=== PATIENT | male | born 1950 | race Caucasian/White ===

== ENCOUNTER 2018-06-11 18:12 | Inpatient (IN) | payer OTHER ==
[~2018-06-11] VITALS: Ht 175.3 cm; Wt 91.0 kg
[2018-06-11 18:22] VITALS: Ht 175.3 cm; Wt 91.0 kg
[2018-06-11 18:56] LABS: BASOPHIL % 0.5 % (0-2); PLATELET COUNT 309 x10^3mcL (130-400)
[2018-06-11 19:01] LABS: CALCIUM 9.2 mg/dL (8.5-10.1); CARBON DIOXIDE 27.7 mmol/L (21-32); CREATININE SERUM 1.4 mg/dL (0.7-1.3); POTASSIUM SERUM 4.6 mmol/L (3.5-5.1)
[2018-06-11 21:39] LABS: AMYLASE 69 U/L (25-115); CHOLESTEROL 198 mg/dL (<200); CHOLESTEROL/HDL RATIO 5.2; HDL CHOLESTEROL 38 mg/dL (40-60); LIPASE 385 IU/L (73-393); MAGNESIUM 2.2 mg/dL (1.8-2.4); PHOSPHOROUS 4.7 mg/dL (2.5-4.9); TRIGLYCERIDES 633 mg/dL (<150)
[2018-06-11 21:43] LABS: FREE T4 0.79 ng/dL (0.76-1.46); FREE THYROXINE INDEX 2.7 ug/dL (1.4-4.5); T4(THYROXINE) 7.6 ug/dL (4.7-13.3)
[2018-06-11 21:46] LABS: T3 TOTAL 0.98 ng/mL
[2018-06-11 22:23] VITALS: BP 131/69
[2018-06-12 05:42] VITALS: BP 150/65
[2018-06-12 06:04] LABS: microscopic required? NO
[2018-06-12 06:39] LABS: BASOPHIL % 0.3 % (0-2); CALCIUM 8.5 mg/dL (8.5-10.1); CARBON DIOXIDE 23.1 mmol/L (21-32); CHLORIDE SERUM 106 mmol/L (98-107); CREATININE SERUM 1.2 mg/dL (0.7-1.3); GFR1 > 60 mL/min; GLUCOSE SERUM 85 mg/dL (74-106); PLATELET COUNT 284 x10^3mcL (130-400); POTASSIUM SERUM 4.4 mmol/L (3.5-5.1); SODIUM SERUM 140 mmol/L (136-145)
[2018-06-12 06:59] LABS: UA SPECIFIC GRAVITY 1.025 (1.005-1.035); urine erythrocyte NEGATIVE (NEGATIVE)
[2018-06-12 07:21] LABS: RED CELL DISTRIBUTION WIDTH 15.9 % (11.5-14.5)
[2018-06-12 07:21] LABS: AMPHETAMINE QUAL UR NONE DETECTED (See below)
[2018-06-12 07:46] VITALS: BP 112/82
== END 2018-06-12 08:18 | disposition left against medical advice (07) | DRG 604 ==
LOC: ED 18:12 → DU 21:13
PROVIDERS: Emergency Medicine; Family Medicine
DX: S20.211A Contusion of right front wall of thorax, initial encounter (principal); N17.0 Acute kidney failure with tubular necrosis; E78.1 Pure hyperglyceridemia; F17.210 Nicotine dependence, cigarettes, uncomplicated; Z68.30 Body mass index [BMI] 30.0-30.9, adult; Z95.1 Presence of aortocoronary bypass graft; V23.4XXA Motorcycle driver injured in collision with car, pick-up truck or van in traffic accident, initial encounter; Y93.89 Activity, other specified; Y92.488 Other paved roadways as the place of occurrence of the external cause
CPT/HCPCS: 83880; 84439; 90715; G0480; J1885; J2001; J3475; J7030; J7613; J7644